=== PATIENT | male | born 1975 | race Caucasian/White ===

== ENCOUNTER 2017-01-10 00:21 | Emergency (ER) | payer MEDICARE, MEDICAID ==
--- NOTE | 2017-01-19 07:29 | ER ---
ADMIT: 01/10/2017 RM/LOC: ER [facility] MR#: [id number] [id number] [address]G MARTINEZ [address] [place] [address] Emergency Room Report SEX: M AGE: 41 : 1975 DATE: 01/10/2017 See T-sheet for complete H and P. ADDENDUM: A 41-year-old male, comes in complaining of some abdominal pain. He thinks he ate bad food earlier. He did have 1 episode of nausea with vomiting. On examination, the patient does not appear in any distress. His vital signs are stable. Examination of his abdomen reveals mild diffuse tenderness noted in the epigastrium. He was given Zofran with some improvement in his symptoms, and he was actually requesting to have some fluids to drink. He was able to tolerate p.o., but still had some abdominal discomfort. He was given a GI cocktail, which significantly improved his symptoms. The patient states he feels like he is fine to go home at this time. Discharged home in stable condition. Manuel Hatch MD/ demetria JOB #: [id number] CC: Manuel Hatch MD, Attending Physician Margo Barraza MD, Family Physician
== END 2017-01-10 02:10 | disposition home or self-care (01) ==
LOC: ER 00:21
DX: R10.13 Epigastric pain (principal); R11.2 Nausea with vomiting, unspecified; F31.9 Bipolar disorder, unspecified; I10 Essential (primary) hypertension; Z88.0 Allergy status to penicillin; Z98.890 Other specified postprocedural states